=== PATIENT | female | born 1980 | race Caucasian/White ===

== ENCOUNTER 2018-04-14 09:17 | Inpatient (IN) | payer OTHER ==
[~2018-04-14] VITALS: Ht 160 cm; Wt 69.1 kg
[2018-04-14] VITALS (20 sets, daily range): BP systolic 106–127; BP diastolic 52–84; PULSE 60–86; TEMP 97.7–98.2
[~2018-04-14 09:17] MED LIST: MOTRIN 600600 MG/TAB PO; PERCOCET 325 MG1 TA2 PO; PRENATAL1 TA1 PO
[2018-04-14 10:50] LABS: BASO % 0.2 % (0.0-2.0); EOS # 0.1 (0.0-0.7); EOS % 0.4 % (0-4.0); GRAN # 10.4 (1.4-6.5); GRAN % 78.3 % (42.2-75.2); HEMATOCRIT 38.1 % (37.0-47.0); HEMOGLOBIN 13.3 g/dl (12.5-16.0); LYMPH # 1.8 (1.2-3.4); LYMPH % 13.2 % (20.0-51.0); MEAN CELL VOLUME 89 fl (80.0-100.0); MEAN CORPUSCULAR HEMOGLOBIN 31 pg (27.0-31.0); MEAN CORPUSCULAR HGB CONC 35 g/dl (33.0-37.0); MEAN PLATELET VOLUME 11.9 fl (7.4-10.4); MONO % 7.4 % (1.7-9.3); PLATELET COUNT 191 K/mm3 (130-400); REDCELL DISTRIBUTION WIDTH-CV 13.2 % (11.5-14.5)
[2018-04-15 03:10] VITALS: BP 110/60; PULSE 64; TEMP 98
[2018-04-15 07:30] VITALS: BP 112/70; PULSE 61; TEMP 97.9
[2018-04-15] MEDS ORDERED: IBU600 MG PO (08:48)
[2018-04-15] MEDS ORDERED: PERCOCET 325 MG1 TA2 PO (08:48)
[2018-04-15 12:00] VITALS: BP 104/55; PULSE 58; TEMP 98.4
[2018-04-15 16:00] VITALS: BP 121/72; PULSE 73; TEMP 97.6
[2018-04-15 20:38] VITALS: BP 128/74; PULSE 66; TEMP 97.8
[2018-04-16 09:25] VITALS: BP 125/74; PULSE 69; TEMP 97.8
[2018-04-16 16:25] VITALS: BP 129/70; PULSE 69; TEMP 97.3
[2018-04-16 20:30] VITALS: BP 138/87; PULSE 100; TEMP 97.9
[2018-04-17 07:07] VITALS: BP 112/81; PULSE 69; TEMP 98
== END 2018-04-17 20:35 | disposition home or self-care (01) | DRG 765 ==
LOC: LDRO 09:17 → LDR 10:30 → OB 13:00
PROVIDERS: Obstetrics & Gynecology
PROC: 10D00Z1 Extraction of Products of Conception, Low, Open Approach (ICD-10-PCS; principal; 2018-04-14)
DX: O32.1XX0 Maternal care for breech presentation, not applicable or unspecified (principal); O60.14X0 Preterm labor third trimester with preterm delivery third trimester, not applicable or unspecified; Z3A.36 36 weeks gestation of pregnancy; Z37.0 Single live birth
CPT/HCPCS: J0171; J0690; J1885; J2250; J2270; J2370; J2405; J2590; J7120

== ENCOUNTER → 2018-04-29 | Outpatient (CLI) | payer OTHER ==
[~2018-04-29] MED LIST changes: +IBU600 MG PO
== END ==
LOC: LAC 10:40
DX: Z39.1 Encounter for care and examination of lactating mother (principal); Z71.89 Other specified counseling

== ENCOUNTER → 2022-12-12 | Outpatient (CLI) | payer BC | LOC: MC.RAD 11:15 | DX: Z12.31 Encounter for screening mammogram for malignant neoplasm of breast (principal) ==

== ENCOUNTER → 2024-01-07 | Outpatient (CLI) | payer BC | LOC: COL.RAD 10:15 | DX: I87.092 Postthrombotic syndrome with other complications of left lower extremity (principal) ==